=== PATIENT | male | born 1975 | race Caucasian/White ===

== ENCOUNTER 2018-04-09 03:40 | Emergency (ER) | payer SELFPAY ==
[~2018-04-09] VITALS: Ht 170.2 cm; Wt 64.0 kg
[2018-04-09 03:56] VITALS: BP 152/104
== END 2018-04-09 04:26 | disposition left against medical advice (07) ==
LOC: ED 04:20
DX: F15.129 Other stimulant abuse with intoxication, unspecified (principal); Z72.89 Other problems related to lifestyle
CPT/HCPCS: 99283